=== PATIENT | male | born 1990 | race African-American/Black ===

== ENCOUNTER 2019-08-02 00:42 | Emergency (ER) | payer SELFPAY | END 2019-08-02 03:36 | disposition left against medical advice (07) | LOC: ER 00:42 | DX: Z53.21 Procedure and treatment not carried out due to patient leaving prior to being seen by health care provider (principal); R11.10 Vomiting, unspecified ==

== ENCOUNTER 2019-08-02 06:44 | Emergency (ER) | payer SELFPAY ==
[2019-08-02] MEDS ORDERED: ONDANSETRON HCL INJ/PF 4 MG/2 ML SDV IV ONE (09:27)
--- NOTE | 2019-08-02 09:37 | ER Document Report ---
ED GI/ - General Chief Complaint: Nausea/Vomiting Stated Complaint: WEAKNESS Time Seen by Provider: 08/02/19 09:14 Notes: CHIEF COMPLAINT: Nausea vomiting for 2 days HPI: 29-year-old male presenting to the emergency department complaining of nausea vomiting for 2 days. Denies abdominal pain. Patient states that he has been throwing up anything he tries to eat or drink. Patient apparently had checked in earlier last night, left and then checked in by ambulance again an hour ago. Denies fevers. States he has been trying to hydrate at home. ROS: See HPI - all other systems were reviewed and are otherwise negative Constitutional: no fever Eyes: no drainage, no blurred vision ENT: no runny nose, no sore throat Cardiovascular: no chest pain Resp: no SOB, no cough GI: no vomiting, no diarrhea, no abdominal pain : no dysuria Integumentary: no rash Allergy: no hives Musculoskeletal: no extremity pain or swelling Neurological: no numbness/tingling, no weakness MEDICATIONS: I agree with the patient medications as charted by the RN. ALLERGIES: I agree with the allergies as charted by the RN. PAST MEDICAL HISTORY/PAST SURGICAL HISTORY: Reviewed and agree as charted by RN. SOCIAL HISTORY: Reviewed and agree as charted by RN. FAMILY HISTORY: No significant familial comorbid conditions directly related to patient complaint EXAM: Reviewed vital signs as charted by RN. CONSTITUTIONAL: Alert and oriented and responds appropriately to questions. Well-appearing; well-nourished HEAD: Normocephalic; atraumatic EYES: PERRL; Conjunctivae clear, sclerae non-icteric ENT: normal nose; no rhinorrhea; moist mucous membranes; pharynx without lesions noted, no uvula edema or deviation, no tonsillar hypertrophy, phonation normal NECK: Supple without meningismus; non-tender; no cervical lymphadenopathy, no masses CARD: RRR; no murmurs, no clicks, no rubs, no gallops; symmetric distal pulses RESP: Normal chest excursion without splinting or tachypnea; breath sounds clear and equal bilaterally; no wheezes, no rhonchi, no rales, pulse oximetry 97% on room air not hypoxic ABD/GI: Normal bowel sounds; non-distended; soft, non-tender, no rebound, no guarding; no palpable organomegaly or masses. BACK: The back appears normal and is non-tender to palpation, there is no CVA tenderness EXT: Normal ROM in all joints; non-tender to palpation; no cyanosis, no effusions, no edema SKIN: Normal color for age and race; warm; dry; good turgor; no acute lesions noted NEURO: Moves all extremities equally; Motor and sensory function intact PSYCH: The patient's mood and manner are appropriate. Grooming and personal hygiene are appropriate. MDM: 29-year-old male complaining of nausea vomiting over the last 2 days. He is absolutely no abdominal pain on exam does admit to smoking marijuana daily. Patient is repeatedly asking to eat or drink here. Discussed at length with the patient. Will give Zofran for nausea, p.o. challenge she does not wish other work-up done at this time as he wishes to eat or drink and then go home - Related Data Allergies/Adverse Reactions: No Known Allergies Allergy (Verified 08/02/19 07:43) Past Medical History - Social History Smoking Status: Current Some Day Smoker Family History: Reviewed & Not Pertinent Patient has homicidal ideation: No - Immunizations Immunizations up to date: Yes Hx Diphtheria, Pertussis, Tetanus Vaccination: Yes Physical Exam - Vital signs Vitals: Temp Pulse Resp BP Pulse Ox 98.5 F 66 16 115/72 100 08/02/19 07:04 08/02/19 07:04 08/02/19 07:04 08/02/19 07:04 08/02/19 07:04 Course - Re-evaluation Re-evalutation: 08/02/19 10:34 Tolerating oral fluids wishes to go home, does not wish further work-up. Will prescribe Zofran, discharge with return instructions - Vital Signs Vital signs: Temp Pulse Resp BP Pulse Ox 98.5 F 66 16 115/72 100 08/02/19 07:04 08/02/19 07:04 08/02/19 07:04 08/02/19 07:04 08/02/19 07:04 Discharge - Discharge Clinical Impression: Nausea & vomiting Qualifiers: Vomiting type: unspecified Vomiting Intractability: non-intractable Qualified Code(s): R11.2 - Nausea with vomiting, unspecified Condition: Stable Disposition: HOME, SELF-CARE Additional Instructions: Take Zofran for any recurrent nausea or vomiting. Continue to push fluids at home. Follow-up with a primary care provider for further evaluation and treatment call for appointment return for onset of abdominal pain or fever Prescriptions: Ondansetron [Zofran Odt 4 mg Tablet] 1 - 2 tab PO Q4H PRN #15 tab.rapdis PRN Reason: For Nausea/Vomiting Referrals: JAMESON PEREZ MD [ACTIVE STAFF] - Follow up as needed
[2019-08-02 10:51] VITALS: BP 137/70
== END 2019-08-02 10:51 | disposition home or self-care (01) ==
LOC: ER 06:44
DX: R11.2 Nausea with vomiting, unspecified (principal); F12.10 Cannabis abuse, uncomplicated; F17.200 Nicotine dependence, unspecified, uncomplicated
CPT/HCPCS: 99283; 96374; J2405

== ENCOUNTER 2019-08-05 12:18 | Emergency (ER) | payer SELFPAY ==
[2019-08-05 12:57] LABS: ABSOLUTE MONOCYTES (AUTO) 0.5 10^3/uL (0.1-1.4); ABSOLUTE NEUT (AUTO) 2.6 10^3/uL (1.7-8.2); BASOPHILS % (AUTO) 0.2 % (0-2); HEMATOCRIT 47.4 % (37.9-51.0); HEMOGLOBIN 15.9 g/dL (13.5-17.0); LYMPHOCYTES % (AUTO) 38.5 % (13-45); MEAN CORPUSCULAR HEMOGLOBIN 28.3 pg (27.0-33.4); MEAN CORPUSCULAR HGB CONC 33.6 g/dL (32.0-36.0); MEAN CORPUSCULAR VOLUME 84 fl (80-97); MONOCYTES % (AUTO) 10.5 % (3-13); PLATELET COUNT 195 10^3/uL (150-450); RED BLOOD COUNT 5.63 10^6/uL (4.35-5.55); SEGMENTED NEUTROPHILS % (AUTO) 50.8 % (42-78); TOTAL CELLS COUNTED % (AUTO) 100 %; WHITE BLOOD COUNT 5.1 10^3/uL (4.0-10.5)
[2019-08-05 13:11] LABS: ALBUMIN 5.3 g/dL (3.5-5.0); ALKALINE PHOSPHATASE 47 U/L (38-126); ANION GAP 15 (5-19); ASPARTATE AMINO TRANSFERASE 20 U/L (17-59); BLOOD UREA NITROGEN 55 mg/dL (7-20); CALCIUM 10.3 mg/dL (8.4-10.2); CARBON DIOXIDE 29 mmol/L (22-30); CHLORIDE 92 mmol/L (98-107); GLUCOSE 114 mg/dL (75-110); TOTAL PROTEIN 8.3 g/dL (6.3-8.2)
[2019-08-05 13:15] LABS: POTASSIUM 2.9 mmol/L (3.6-5.0)
[2019-08-05] MEDS ORDERED: NORMAL SALINE 1000 ML 1,000 ML IV ONE ×2 (13:20→14:09)
[2019-08-05] MEDS ORDERED: ONDANSETRON HCL INJ/PF 4 MG/2 ML SDV IV ONE (13:20)
--- NOTE | 2019-08-05 13:21 | ER Document Report ---
ED General - General Chief Complaint: Nausea/Vomiting Stated Complaint: DEHYDRATION Time Seen by Provider: 08/05/19 13:19 Mode of Arrival: Ambulatory Information source: Patient Notes: Otherwise healthy 29-year-old male presenting to the emergency department with 1 week history of nausea and vomiting. Patient reports he was seen here last week, states he was prescribed Zofran however he was unable to afford it so he never picked it up. Patient reports he has been vomiting at least 10-15 times per day. Patient denies any diarrhea or fevers. He reports that he does not have any medical history. - Related Data Allergies/Adverse Reactions: No Known Allergies Allergy (Verified 08/02/19 07:43) Past Medical History - General Information source: Patient - Social History Smoking Status: Never Smoker Frequency of alcohol use: None Drug Abuse: None Family History: Reviewed & Not Pertinent - Medical History Medical History: Negative Surgical Hx: Negative - Immunizations Immunizations up to date: Yes Hx Diphtheria, Pertussis, Tetanus Vaccination: Yes Review of Systems - Review of Systems Constitutional: Chills. denies: Fever EENT: No symptoms reported Cardiovascular: No symptoms reported Respiratory: No symptoms reported Gastrointestinal: Abdominal pain, Nausea, Vomiting Genitourinary: No symptoms reported Male Genitourinary: No symptoms reported Musculoskeletal: No symptoms reported Skin: No symptoms reported Hematologic/Lymphatic: No symptoms reported Neurological/Psychological: No symptoms reported Physical Exam - Vital signs Vitals: Temp 98.7 F 08/05/19 12:18 - Notes Notes: PHYSICAL EXAMINATION: GENERAL: Well-appearing, well-nourished and in no acute distress. HEAD: Atraumatic, normocephalic. EYES: Pupils equal round and reactive to light, extraocular movements intact, sclera anicteric, conjunctiva are normal. ENT: Nares patent, oropharynx clear without exudates. Moist mucous membranes. NECK: Normal range of motion, supple without lymphadenopathy LUNGS: Breath sounds clear to auscultation bilaterally and equal. No wheezes rales or rhonchi. HEART: Regular rate and rhythm without murmurs ABDOMEN: Soft, mildly tender, nondistended abdomen. No guarding, no rebound. No masses appreciated. Musculoskeletal: Normal range of motion, no pitting or edema. No cyanosis. NEUROLOGICAL: Cranial nerves grossly intact. Normal speech, normal gait. Normal sensory, motor exams PSYCH: Normal mood, normal affect. SKIN: Warm, Dry, normal turgor, no rashes or lesions noted. Course - Re-evaluation Re-evalutation: Laboratory 08/05/19 08/05/19 08/05/19 12:35 12:35 13:41 WBC 5.1 RBC 5.63 H Hgb 15.9 Hct 47.4 MCV 84 MCH 28.3 MCHC 33.6 RDW 14.0 Plt Count 195 Lymph % (Auto) 38.5 [place] % (Auto) 10.5 Eos % (Auto) 0.0 Baso % (Auto) 0.2 Absolute Neuts (auto) 2.6 Absolute Lymphs (auto) 2.0 Absolute Monos (auto) 0.5 Absolute Eos (auto) 0.0 Absolute Basos (auto) 0.0 Seg Neutrophils % 50.8 Sodium 135.9 L Potassium 2.9 L* Chloride 92 L Carbon Dioxide 29 Anion Gap 15 BUN 55 H Creatinine 1.77 H Est GFR ( Amer) 55 L Est GFR (MDRD) Non-Af 45 L Glucose 114 H Calcium 10.3 H Total Bilirubin 1.0 Direct Bilirubin 0.0 Neonat Total Bilirubin Not Reportable Neonat Direct Bilirubin Not Reportable Neonat Indirect Bili Not Reportable AST 20 ALT 16 Alkaline Phosphatase 47 Total Protein 8.3 H Albumin 5.3 H Lipase 147.0 Urine Color YELLOW Urine Appearance SLIGHTLY-CLOUDY Urine pH 5.0 Ur Specific [place] 1.024 Urine Protein 30 H Urine Glucose (UA) NEGATIVE Urine Ketones NEGATIVE Urine Blood SMALL H Urine Nitrite NEGATIVE Urine Bilirubin NEGATIVE Urine Urobilinogen NEGATIVE Ur Leukocyte Esterase NEGATIVE Urine WBC (Auto) 2 Urine RBC (Auto) 2 U Hyaline Cast (Auto) 180 Squamous Epi Cells Auto 2 Urine Mucus (Auto) MANY Urine Ascorbic Acid NEGATIVE 08/05/19 19:15 WBC RBC Hgb Hct MCV MCH MCHC RDW Plt Count Lymph % (Auto) [place] % (Auto) Eos % (Auto) Baso % (Auto) Absolute Neuts (auto) Absolute Lymphs (auto) Absolute Monos (auto) Absolute Eos (auto) Absolute Basos (auto) Seg Neutrophils % Sodium 133.0 L Potassium 5.2 H D Chloride 100 Carbon Dioxide 26 Anion Gap 7 BUN 39 H Creatinine 1.10 Est GFR ( Amer) > 60 Est GFR (MDRD) Non-Af > 60 Glucose 96 Calcium 8.8 Total Bilirubin Direct Bilirubin Neonat Total Bilirubin Neonat Direct Bilirubin Neonat Indirect Bili AST ALT Alkaline Phosphatase Total Protein Albumin Lipase Urine Color Urine Appearance Urine pH Ur Specific [place] Urine Protein Urine Glucose (UA) Urine Ketones Urine Blood Urine Nitrite Urine Bilirubin Urine Urobilinogen Ur Leukocyte Esterase Urine WBC (Auto) Urine RBC (Auto) U Hyaline Cast (Auto) Squamous Epi Cells Auto Urine Mucus (Auto) Urine Ascorbic Acid Abdomen/Pelvis CT 08/05/19 00:00 IMPRESSION: 1. Paucity of body fat limits the examination. 2. No ACUTE FINDING IN THE ABDOMEN OR PELVIS. 3. Additional findings as above. Patient appears well, nontoxic. He had a potassium of 2.9 and a creatinine of 1.77. He was given 2 L of IV fluids. A CT abdomen pelvis was performed and showed no acute findings. Patient has not had any vomiting while in the emergency department today. I did repeat lab work and patient's creatinine is now 1.1. He feels much better. He will be discharged home at this time with a prescription for Phenergan and a dispense pack of Zofran. - Vital Signs Vital signs: Temp Pulse Resp BP Pulse Ox 98.7 F 86 23 H 112/64 100 08/05/19 12:49 08/05/19 12:49 08/05/19 20:00 08/05/19 16:27 08/05/19 20:00 - Laboratory Result Diagrams: 08/05/19 12:35 08/05/19 19:15 Laboratory results interpreted by me: 08/05/19 08/05/19 08/05/19 12:35 12:35 13:41 RBC 5.63 H Sodium 135.9 L Potassium 2.9 L* Chloride 92 L BUN 55 H Creatinine 1.77 H Est GFR ( Amer) 55 L Est GFR (MDRD) Non-Af 45 L Glucose 114 H Calcium 10.3 H Total Protein 8.3 H Albumin 5.3 H Urine Protein 30 H Urine Blood SMALL H 08/05/19 19:15 RBC Sodium 133.0 L Potassium 5.2 H D Chloride BUN 39 H Creatinine Est GFR ( Amer) Est GFR (MDRD) Non-Af Glucose Calcium Total Protein Albumin Urine Protein Urine Blood Discharge - Discharge Clinical Impression: Dehydration Nausea and vomiting Qualifiers: Vomiting type: unspecified Vomiting Intractability: unspecified Qualified Code(s): R11.2 - Nausea with vomiting, unspecified Condition: Stable Disposition: HOME, SELF-CARE Instructions: Intravenous (IV) Fluids ([facility]), Vomiting ([facility]) Additional Instructions: Please take medications as prescribed. Use the discount card that you were given to help with the cost. If the cost is not affordable please have the pharmacist call us as we may be able to switch the prescription. Return to the emergency department with any new or worsening symptoms to include worsening abdominal pain, development of blood in your vomit or stool or development of fever. Your COVID-19 test results are pending, the health department will call you in the next 3 to 4 days with the results, self quarantine until this occurs. Prescriptions: Promethazine HCl [Phenergan 25 mg Tablet] 1 - 2 tab PO Q6H PRN #15 tablet PRN Reason: Forms: Return to Work
[2019-08-05 14:06] LABS: APPEARANCE,URINE SLIGHTLY-CLOUDY; BILIRUBIN,URINE NEGATIVE (NEGATIVE); COLOR,URINE YELLOW; GLUCOSE, URINE NEGATIVE (NEGATIVE); KETONES,URINE NEGATIVE (NEGATIVE); LEUKOCYTE ESTERASE,URINE NEGATIVE (NEGATIVE); NITRITE,URINE NEGATIVE (NEGATIVE); PROTEIN,URINE 30 mg/dL (NEGATIVE); URINE SPECIFIC GRAVITY 1.024; UROBILINOGEN,URINE NEGATIVE mg/dL (<2.0)
[2019-08-05] MEDS: POTASSI CL 20 MEQ/50 ML RIDER 20 MEQ/50 ML RTUPB IV SCH ×2 (14:25→16:22)
--- NOTE | 2019-08-05 17:38 | RADIOLOGY REPORT (SQ) ---
EXAM DESCRIPTION: CT ABD/PELVIS WITH IV ORAL IMAGES COMPLETED DATE/TIME: 08/05/2019 5:14 pm REASON FOR STUDY: abd pain, vomiting COMPARISON: None. TECHNIQUE: CT scan of the abdomen and pelvis performed using helical scanning technique with dynamic intravenous contrast injection. No oral contrast. Images reviewed with lung, soft tissue, and bone windows. Reconstructed coronal and sagittal MPR images reviewed. Delayed images for evaluation of the urinary system also acquired. All images stored on PACS. All CT scanners at this facility use dose modulation, iterative reconstruction, and/or weight based d osing when appropriate to reduce radiation dose to as low as reasonably achievable (ALARA). [facility]: Dose Right [facility]: CareDose [facility]: Dose Right [facility]: Teradose 4D [facility]: LucidEra CONTRAST TYPE AND DOSE: contrast/concentration: Isovue 350.00 mmol/ml; Total Contrast Delivered: 83. 0 ml; Total Saline Delivered: 52.3 ml RENAL FUNCTION: None required. The patient is less than 50 years old. RADIATION DOSE: CT Rad equipment meets quality standard of care and radiation dose reduction techniq ues were employed. CTDIvol: 4.8 - 5.0 mGy. DLP: 489 mGy-cm.. LIMITATIONS: A paucity of body fat limits the examination. FINDINGS: LOWER CHEST: No significant findings. No nodules or infiltrates. LIVER: Normal size. No masses. No dilated ducts. The hepatic and portal veins are patent. SPLEEN: Normal size. No focal lesions. PANCREAS: No masses. No significant calcifications. No adjacent inflammation or peripancreatic fluid collections. Pancreatic duct not dilated. GALLBLADDER: No identified stones by CT criteria. No inflammatory changes to suggest cholecystitis. ADRENAL GLANDS: No significant masses or asymmetry. RIGHT KIDNEY AND URETER: Small right renal cyst. Extrarenal pelvis on the right, normal anatomic va riant. No significant calcifications. No hydronephrosis or hydroureter. LEFT KIDNEY AND URETER: Extrarenal pelvis on the left, normal anatomic variant. No solid masses. N o significant calcifications. No hydronephrosis or hydroureter. AORTA AND VESSELS: No aneurysm. No dissection. Renal arteries, SMA, celiac without stenosis. RETROPERITONEUM: No retroperitoneal adenopathy, hemorrhage or masses. BOWEL AND PERITONEAL CAVITY: No masses or inflammatory changes. No free fluid or peritoneal masses. APPENDIX: Not visualized. PELVIS: No mass. No free fluid. Normal bladder. ABDOMINAL WALL: No masses. No hernias. BONES: At L5-S1, mild broad-based disc bulge. OTHER: No other significant finding. IMPRESSION: 1. Paucity of body fat limits the examination. 2. No ACUTE FINDING IN THE ABDOMEN OR PELVIS. 3. Additional findings as above. TECHNICAL DOCUMENTATION: JOB ID: [id number] Quality ID # [id number]: Final reports with documentation of one or more dose reduction techniques (e.g., Au tomated exposure control, adjustment of the mA and/or kV according to patient size, use of iterative reconstruction technique) 2010 [employer]- All Rights Reserved Reading location - IP/workstation name: [email or web address]
[2019-08-05 20:07] LABS: ANION GAP 7 (5-19); BLOOD UREA NITROGEN 39 mg/dL (7-20); CALCIUM 8.8 mg/dL (8.4-10.2); CARBON DIOXIDE 26 mmol/L (22-30); CHLORIDE 100 mmol/L (98-107); GLUCOSE 96 mg/dL (75-110)
[2019-08-05 20:33] LABS: POTASSIUM 5.2 mmol/L (3.6-5.0)
[2019-08-05] MEDS ORDERED: ONDANSETRON ODT 4 MG TAB (6 TAB/ER DISP) PO PRN (20:53)
[2019-08-05 21:03] VITALS: BP 103/68
== END 2019-08-05 21:02 | disposition home or self-care (01) ==
LOC: ER 12:18
DX: R11.2 Nausea with vomiting, unspecified (principal); E86.0 Dehydration; R68.83 Chills (without fever); Z20.828 Contact with and (suspected) exposure to other viral communicable diseases
CPT/HCPCS: 99284; 96361; 96375; 96365; 96366; 36415; 83690; 85025; 87635; 80053; 81001; 74177; J2405; J3480; J7030; C9803

== ENCOUNTER 2020-03-02 13:33 | Emergency (ER) | payer SELFPAY ==
[2020-03-02 13:58] LABS: ABSOLUTE EOSINOPHILS # (AUTO) 0.1 10^3/uL (0.0-0.6); ABSOLUTE LYMPHOCYTES (AUTO) 2.9 10^3/uL (0.5-4.7); ABSOLUTE MONOCYTES (AUTO) 0.3 10^3/uL (0.1-1.4); ABSOLUTE NEUT (AUTO) 2.4 10^3/uL (1.7-8.2); BASOPHILS % (AUTO) 0.4 % (0-2); HEMATOCRIT 40.2 % (37.9-51.0); HEMOGLOBIN 12.9 g/dL (13.5-17.0); MEAN CORPUSCULAR HEMOGLOBIN 27.8 pg (27.0-33.4); MEAN CORPUSCULAR VOLUME 87 fl (80-97); MONOCYTES % (AUTO) 5.3 % (3-13); PLATELET COUNT 164 10^3/uL (150-450); RED BLOOD COUNT 4.62 10^6/uL (4.35-5.55); RED CELL DISTRIBUTION WIDTH 14.9 % (11.5-14.0); SEGMENTED NEUTROPHILS % (AUTO) 42.3 % (42-78); TOTAL CELLS COUNTED % (AUTO) 100 %; WHITE BLOOD COUNT 5.7 10^3/uL (4.0-10.5)
[2020-03-02 14:33] LABS: ALBUMIN 4.8 g/dL (3.5-5.0); ALKALINE PHOSPHATASE 45 U/L (38-126); ANION GAP 19 (5-19); ASPARTATE AMINO TRANSFERASE 32 U/L (17-59); BILIRUBIN,DIRECT 0.1 mg/dL (0.0-0.4); BILIRUBIN,TOTAL 0.3 mg/dL (0.2-1.3); BLOOD UREA NITROGEN 8 mg/dL (7-20); CALCIUM 9.7 mg/dL (8.4-10.2); CARBON DIOXIDE 21 mmol/L (22-30); CHLORIDE 103 mmol/L (98-107); GLUCOSE 96 mg/dL (75-110); POTASSIUM 3.7 mmol/L (3.6-5.0); TOTAL PROTEIN 7.2 g/dL (6.3-8.2)
[2020-03-02 14:42] LABS: ALCOHOL < 10 mg/dL (NONE DETECTED)
--- NOTE | 2020-03-02 15:35 | RADIOLOGY REPORT (SQ) ---
EXAM DESCRIPTION: CT HEAD WITHOUT IMAGES COMPLETED DATE/TIME: 03/02/2020 3:27 pm REASON FOR STUDY: new seizure COMPARISON: None. TECHNIQUE: Axial images acquired through the brain without intravenous contrast. Images reviewed wi th bone, brain and subdural windows. Additional sagittal and coronal reconstructions were generated. Images stored on PACS. All CT scanners at this facility use dose modulation, iterative reconstruction, and/or weight based d osing when appropriate to reduce radiation dose to as low as reasonably achievable (ALARA). [facility]: Dose Right [facility]: CareDose [facility]: Dose Right [facility]: Teradose 4D [facility]: Smart Vimessa RADIATION DOSE: CT Rad equipment meets quality standard of care and radiation dose reduction techniq ues were employed. CTDIvol: 53.2 mGy. DLP: 1017 mGy-cm. mGy. LIMITATIONS: None. FINDINGS: VENTRICLES: Normal size and contour. CEREBRUM: No masses. No hemorrhage. No midline shift. No evidence for acute infarction. Normal gra y/white matter differentiation. No areas of low density in the white matter. CEREBELLUM: No masses. No hemorrhage. No alteration of density. No evidence for acute infarction. EXTRAAXIAL SPACES: No fluid collections. No masses. ORBITS AND GLOBE: No intra- or extraconal masses. Normal contour of globe without masses. CALVARIUM: No fracture. PARANASAL SINUSES: No fluid or mucosal thickening. SOFT TISSUES: No mass or hematoma. OTHER: No other significant finding. IMPRESSION: NORMAL BRAIN CT WITHOUT CONTRAST. EVIDENCE OF ACUTE STROKE: NO. COMMENT: Quality ID # [id number]: Final reports with documentation of one or more dose reduction techniques (e.g., Automated exposure control, adjustment of the mA and/or kV according to patient size, use of iterative reconstruction technique) TECHNICAL DOCUMENTATION: JOB ID: [id number] 2010 [employer]- All Rights Reserved Reading location - IP/workstation name: [email or web address]
[2020-03-02] MEDS ORDERED: NORMAL SALINE 1000 ML 1,000 ML IV ONE (17:05)
--- NOTE | 2020-03-02 17:09 | ER Document Report ---
ED General - General Chief Complaint: Seizure Stated Complaint: ALTERED MENTAL STATUS Time Seen by Provider: 03/02/20 15:04 Primary Care Provider: [facility] [NO LOCAL MD] - Follow up as needed - HPI Notes: Patient is a 29-year-old male with no significant medical history presents the emergency department for evaluation after witnessed seizure activity. According to his girlfriend the patient "fell out" and then had generalized seizure activity for approximately 4 to 6 minutes. He did bite his tongue. He was not incontinent. The patient has no history of seizures. He has had no recent head traumas. He complains of pain in his back but denies any other pain at this time. He denies the use of alcohol or any sort of illicit drugs. - Related Data Allergies/Adverse Reactions: No Known Allergies Allergy (Verified 03/02/20 13:47) Home Medications: None Past Medical History - General Information source: Patient - Social History Smoking Status: Current Some Day Smoker Frequency of alcohol use: None Drug Abuse: None Family History: None, Reviewed & Not Pertinent Patient has homicidal ideation: No - Immunizations Immunizations up to date: Yes Hx Diphtheria, Pertussis, Tetanus Vaccination: Yes Review of Systems - Review of Systems Constitutional: No symptoms reported EENT: See HPI Cardiovascular: No symptoms reported Respiratory: No symptoms reported Gastrointestinal: No symptoms reported Genitourinary: No symptoms reported Musculoskeletal: No symptoms reported Skin: No symptoms reported Neurological/Psychological: See HPI Physical Exam - Vital signs Vitals: Resp 14 03/02/20 13:34 - Notes Notes: This is a drowsy 29-year-old male who appears his stated age, no acute distress. He responds quickly to verbal stimuli. Vital signs reviewed, please refer to chart. Head is normocephalic, atraumatic. Pupils equal round, reactive to light. Oral mucosa is moist. Small superficial laceration to the distal tongue without any active bleeding or signs of foreign body. Neck is supple without meningismus. Heart is regular rate and rhythm. Lungs are clear to auscultation bilaterally. Abdomen is soft, nontender, normoactive bowel sounds throughout. Extremities without cyanosis, clubbing. Posterior calves are nontender. Peripheral pulses are equal. Skin is warm and dry. Patient is awake, mildly drowsy, but oriented x3. Cranial nerves II - XII are grossly intact without focal neurological deficits. Strength is plus 5 out of 5 bilateral upper and lower extremities. Sensation is intact. Reflexes symmetrical. Intact [id number], rapid alternating movements, [id number]. Course - Re-evaluation Re-evalutation: 03/02/20 17:08 Patient presents emergency department for evaluation of witnessed seizure activity. He had laboratory investigations ordered as per protocol. He had seizure protocol orders placed as well. I did add a CT head as this was his first seizure and I was unsure as to whether he could have undergone any trauma. It was unremarkable. Blood work is thus far unremarkable. Still awaiting urinalysis and urine drug screen. I will give him IV fluids. He has been here for some time, no further seizure activity witnessed. We will continue to monitor. 03/02/20 19:49 Patient remained neurologically at baseline. He did not have any repeat seizure activity. I did confront him about the multiple positives on his drug screen. I explained to him that that was the most likely etiology of his seizure activity. I strongly encouraged him to abstain from illicit drug use and he voiced understanding. I explained that if he has another seizure he needs to return immediately to the ER and may require further work-up. He voiced understanding. He is currently stable and amenable to discharge. He is to return to the ED with worsening. - Vital Signs Vital signs: Temp Pulse Resp BP Pulse Ox 98.2 F 81 17 112/62 96 03/02/20 20:17 03/02/20 20:17 03/02/20 20:17 03/02/20 20:17 03/02/20 20:17 - Laboratory Results Result Diagrams: 03/02/20 13:44 03/02/20 13:44 Laboratory Results Interpreted: 03/02/20 03/02/20 03/02/20 13:44 13:44 18:44 Hgb 12.9 L RDW 14.9 H Lymph % (Auto) 51.0 H Carbon Dioxide 21 L Urine Protein 30 H Urine Ketones TRACE H Urine Blood MODERATE H Urine Urobilinogen 2.0 H Critical Laboratory Results Reviewed: No Critical Results - Radiology Results Radiology Results Interpreted: 03/02/20 19:[address] 03/02/20 15:09 IMPRESSION: NORMAL BRAIN CT WITHOUT CONTRAST. EVIDENCE OF ACUTE STROKE: NO. Critical Radiology Results Reviewed: No Critical Results Discharge - Discharge Clinical Impression: Seizure, Polysubstance abuse Condition: Stable Disposition: HOME, SELF-CARE Instructions: New Seizure ([facility]) Additional Instructions: Please abstain from using illicit drugs. You should not drive until cleared by primary care. If you have further seizure activity please return immediately to the ER, you may require EEG, further testing, and neurology referral. Return to the emergency department for worsening or new concerning symptoms of any sort. Referrals: [facility] [NO LOCAL MD] - Follow up as needed
--- NOTE | 2020-03-02 18:41 | EKG REPORT ---
SEVERITY:- NORMAL ECG - SINUS RHYTHM : Confirmed by: Fredrick Mccarthy MD 02-Mar-2020 18:40:23
[2020-03-02 19:09] LABS: APPEARANCE,URINE CLEAR; BILIRUBIN,URINE NEGATIVE (NEGATIVE); COLOR,URINE YELLOW; GLUCOSE, URINE NEGATIVE (NEGATIVE); KETONES,URINE TRACE mg/dL (NEGATIVE); LEUKOCYTE ESTERASE,URINE NEGATIVE (NEGATIVE); NITRITE,URINE NEGATIVE (NEGATIVE); PROTEIN,URINE 30 mg/dL (NEGATIVE); URINE SPECIFIC GRAVITY 1.016
[2020-03-02 19:26] LABS: URINE AMPHETAMINES SCREEN NEGATIVE; URINE BARBITURATES SCREEN NEGATIVE; URINE METHADONE SCREEN NEGATIVE; URINE PHENCYCLIDINE SCREEN NEGATIVE
[2020-03-02 19:28] LABS: URINE BENZODIAZEPINES SCREEN UNCONFIRMED POSITIVE; URINE COCAINE SCREEN UNCONFIRMED POSITIVE; URINE MARIJUANA (THC) SCREEN UNCONFIRMED POSITIVE
[2020-03-02 20:17] VITALS: BP 112/62
== END 2020-03-02 20:23 | disposition home or self-care (01) ==
LOC: ER 13:33
DX: F19.10 Other psychoactive substance abuse, uncomplicated (principal); G40.909 Epilepsy, unspecified, not intractable, without status epilepticus; R41.82 Altered mental status, unspecified; F17.200 Nicotine dependence, unspecified, uncomplicated
CPT/HCPCS: 93005; 99285; 96360; 36415; 80307 ×2; 83735; 85025; 80053; 81001; 70450; 93010; J7030